=== PATIENT | male | born 1940 | race Caucasian/White ===

== ENCOUNTER 2016-06-10 06:19 | Emergency (ER) | payer OTHER ==
--- NOTE | 2016-06-10 07:05 | EDPHY ---
H & P Time Seen by Provider: 06/10/16 07:00 HPI/ROS: CHIEF COMPLAINT: Dysuria HISTORY OF PRESENT ILLNESS: This patient is a 76 year old male with a history of metastatic prostate cancer who presents to the Emergency Department complaining of dysuria with associated subjective fever over the past few days. Family reports that he has been more fatigued than usual over that time as well. He has no additional complaints. He denies difficulty walking. No nausea or vomiting. He does complain of chronic intermittent low back pain that is effectively alleviated with Ibuprofen use. A metastatic lesion was seen on imaging scan at [facility] in 2013 though it is unclear if his chronic pain is secondary to this. REVIEW OF SYSTEMS: Constitutional: +fatigue, +mild fever, no chills Eyes: No visual changes ENT: No sore throat Respiratory: No cough, no shortness of breath Cardiac: No chest pain Gastrointestinal: No nausea, no vomiting, no abdominal pain Genitourinary: +dysuria, no hematuria Musculoskeletal: +chronic low back pain, +restless legs, no leg pain or swelling Skin: No rash Neurological: No headache, no numbness, no weakness Psychiatric: No depression Past Medical/Surgical History: Metastatic prostate cancer. Chronic intermittent low back pain. Restless leg syndrome. Social History: Daughter at bedside is a practicing retread technician. Non-smoker. Smoking Status: Never smoked Physical Exam: General Appearance: Alert, non-toxic Eyes: Pupils equal and round, no conjunctival pallor or injection ENT, Mouth: Mucous membranes moist Neck: Normal inspection Back: Lower midline tenderness not localized, left paraspinous tenderness Respiratory: Lungs are clear to auscultation Cardiovascular: Regular rate and rhythm Gastrointestinal: Abdomen is soft and non-tender Neurological: A&O, nonfocal, normal gait Skin: Warm and dry, no rash Extremities: Nontender, no pedal edema Psychiatric: Mood and affect normal Constitutional: Initial Vital Signs Temperature (C) 36.9 C 06/10/16 06:25 Heart Rate 84 06/10/16 06:25 Respiratory Rate 18 06/10/16 06:25 Blood Pressure 118/70 06/10/16 06:25 O2 Sat (%) 96 06/10/16 06:25 O2 Delivery Mode Room Air Allergies/Adverse Reactions: No Known Allergies Allergy (Unverified 06/10/16 06:29) Home Medications: Medication Instructions Recorded Donepezil HCl [Aricept] 10 mg PO DAILY 06/10/16 Memantine HCl [Namenda 5 mg (*)] 5 mg PO BID 06/10/16 Naturthroid 06/10/16 Tamsulosin HCl [Flomax 0.4 MG (*)] 0.4 mg PO DAILY 06/10/16 Medical Decision Making - Diagnostics Imaging: Study: CT of the abdomen and pelvis Indication: History of metastatic prostate cancer, dysuria with fever Results: CT scan of the abdomen and pelvis was obtained. The results of the study are: 1. Moderate left hydronephrosis to the level of the sacral promontory. No ureteral calculi or nephrolithiasis. Perhaps the obstruction is secondary to retroperitoneal and pelvic lymphadenopathy. 2. Retroperitoneal and pelvic lymphadenopathy as well as numerous sclerotic bone lesions are suspicious for metastatic prostate adenocarcinoma. 3. Cholelithiasis. The study was read by the radiologist, Dr. Los Hammond. I viewed the images myself on the PACS system. ED Course/Re-evaluation: This 76 year old male with metastatic prostate cancer presents with low-grade fever and complaints of dysuria over the past three days. His daughter, who is a practicing retread technician, expresses concern of pyelonephritis or UTI. The patient also complains of low back pain at baseline which daughter reports is treated effectively with Ibuprofen use. I'm aware that this is possible metastatic disease, but as long as this is intermittent, will advise the patient and daughter to continue to observe and follow-up with the patient's oncologist. On exam, the patient does have right-sided paraspinous tenderness and midline lumbar tenderness. Will proceed with UA, CT of the abdomen and pelvis, and labs. IV established. 1L IV NS administered. Labs obtained: The patient is mildly anemic at baseline. Labs are otherwise unremarkable. UA is negative for UTI but positive for hematuria. 829: Imaging results reported to me by Dr. Uche Hammond, radiology. I discussed imaging results with the patient. Unclear etiology of hydronephrosis and hematuria, concerning for metastatic disease causing obstruction. He sees Dr. Browning, urologist, in [place] and agrees to see his urologist today as an outpatient. He expresses understanding of customary return precautions and will be discharged home in good condition. Differential Diagnosis: includes though not limited to pyelonephritis, kidney stone, bladder obstruction , neurologic compromise - Data Points Laboratory Results: Laboratory Results 06/10/16 07:00 06/10/16 07:00 06/10/16 06/10/16 06/10/16 07:00 07:00 06:28 WBC 6.08 10^3/uL 10^3/uL (3.80-9.50) RBC 3.52 10^6/uL L 10^6/uL (4.40-6.38) Hgb 10.8 g/dL L g/dL (13.7-17.5) Hct 32.0 % L % (40.0-51.0) MCV 90.9 fL fL (81.5-99.8) MCH 30.7 pg pg (27.9-34.1) MCHC 33.8 g/dL g/dL (32.4-36.7) RDW 14.7 % % (11.5-15.2) Plt Count 192 10^3/uL 10^3/uL (150-400) MPV 9.1 fL fL (8.7-11.7) Neut % (Auto) 70.5 % % (39.3-74.2) Lymph % (Auto) 16.6 % % (15.0-45.0) Brooks % (Auto) 11.5 % % (4.5-13.0) Eos % (Auto) 0.5 % L % (0.6-7.6) Baso % (Auto) 0.2 % L % (0.3-1.7) Nucleat RBC Rel Count 0.0 % % (0.0-0.2) Absolute Neuts (auto) 4.29 10^3/uL 10^3/uL (1.70-6.50) Absolute Lymphs (auto) 1.01 10^3/uL 10^3/uL (1.00-3.00) Absolute Monos (auto) 0.70 10^3/uL 10^3/uL (0.30-0.80) Absolute Eos (auto) 0.03 10^3/uL 10^3/uL (0.03-0.40) Absolute Basos (auto) 0.01 10^3/uL L 10^3/uL (0.02-0.10) Absolute Nucleated RBC 0.00 10^3/uL 10^3/uL (0-0.01) Immature Gran % 0.7 % % (0.0-1.1) Immature Gran # 0.04 10^3/uL 10^3/uL (0.00-0.10) Sodium 137 mEq/L mEq/L (134-144) Potassium 3.9 mEq/L mEq/L (3.5-5.2) Chloride 101 mEq/L mEq/L (97-110) Carbon Dioxide 29 mEq/l mEq/l (22-31) Anion Gap 7 mEq/L L mEq/L (8-16) BUN 19 mg/dL mg/dL (7-23) Creatinine 1.2 mg/dL mg/dL (0.7-1.3) Estimated GFR 59 Glucose 107 mg/dL H mg/dL (70-100) Calcium 8.8 mg/dL mg/dL (8.5-10.4) Urine Color YELLOW Urine Appearance HAZY Urine pH 5.0 (5.0-7.5) Ur Specific [place] 1.014 (1.002-1.030) Urine Protein 1+ H (NEGATIVE) Urine Ketones NEGATIVE (NEGATIVE) Urine Blood 1+ H (NEGATIVE) Urine Nitrate NEGATIVE (NEGATIVE) Urine Bilirubin NEGATIVE (NEGATIVE) Urine Urobilinogen NEGATIVE EU EU (0.2-1.0) Ur Leukocyte Esterase NEGATIVE (NEGATIVE) Urine RBC 50-182 /hpf H /hpf (0-3) Urine WBC 1-3 /hpf /hpf (0-3) Ur Epithelial Cells NONE SEEN /lpf /lpf (NONE-1+) Hyaline Casts 1-5 /lpf /lpf (0-1) Urine Mucus TRACE /lpf /lpf (NONE-1+) Ur Culture Indicated? NOT INDICATED (NI) Urine Glucose NEGATIVE (NEGATIVE) Medications Given: Discontinued Medications Sodium Chloride (Ns) 1,000 mls @ 0 mls/hr IV ONCE ONE PRN Reason: Wide Open Stop: 06/10/16 07:21 Last Admin: 06/10/16 07:24 Dose: 1,000 mls Departure - Departure Disposition: Home, Routine, Self-Care Clinical Impression: Hydronephrosis of left kidney, Hematuria Instructions: Hematuria (ED), Hydronephrosis (ED) Additional Instructions: 1. Take 650mg Tylenol every 4-6 hours as needed for pain. 2. Follow-up with your urologist today without fail. 3. Return to the Emergency Department with uncontrollable high fever, blood in your urine, worsening urinary complaints, or other serious concerns. Referrals: Digna Lundy [Primary Care Provider] - As per Instructions Gurmeet Browning MD [Medical Doctor] - As per Instructions Report Scribed for: Annette Arizmendi Report Scribed by: Carmella Serrato Date of Report: 06/10/16 Time of Report: 07:04 Physician Review and Approval Statement: 06/10/16 07:04 Portions of this note were transcribed by a certified medical technician. I personally performed a history, physical exam, medical decision making, and confirmed accuracy of information the transcribed note.
[2016-06-10 07:12] LABS: % IMMATURE GRANULYOCYTES 0.7 % (0.0-1.1); ABSOLUTE IMMATURE GRANULOCYTES 0.04 10^3/uL (0.00-0.10); ADD DIFF? NO; ADD MORPH? NO; ADD SCAN? NO; ATYPICAL LYMPHOCYTE FLAG 20 (0-99); FRAGMENT RBC FLAG 0 (0-99); HEMOGLOBIN 10.8 g/dL (13.7-17.5); LEFT SHIFT FLG 0 (0-99); LIPEMIA HEMOLYSIS FLAG 90 (0-99); MEAN CELL HEMOGLOBIN 30.7 pg (27.9-34.1); MEAN CELL HEMOGLOBIN CONCENTR. 33.8 g/dL (32.4-36.7); MEAN CELL VOLUME 90.9 fL (81.5-99.8); MEAN PLATELET VOLUME 9.1 fL (8.7-11.7); PLATELET CLUMPS FLAG 0 (0-99); PLATELET COUNT 192 10^3/uL (150-400); RED BLOOD CELL COUNT 3.52 10^6/uL (4.40-6.38); RED CELL DISTRIBUTION WIDTH 14.7 % (11.5-15.2)
[2016-06-10] MEDS ORDERED: NS 1,000 ML IV ONE (07:20)
[2016-06-10 07:24] LABS: ANION GAP 7 mEq/L (8-16); CALCIUM 8.8 mg/dL (8.5-10.4); CARBON DIOXIDE 29 mEq/l (22-31); CHLORIDE 101 mEq/L (97-110); CREATININE 1.2 mg/dL (0.7-1.3); GLOMERULAR FILTRATION RATE 59; GLUCOSE 107 mg/dL (70-100); POTASSIUM 3.9 mEq/L (3.5-5.2); SODIUM 137 mEq/L (134-144)
[2016-06-10 08:40] LABS: COLOR YELLOW; LEUKOCYTE ESTERASE,URINE NEGATIVE (NEGATIVE); NITRITE,URINE NEGATIVE (NEGATIVE)
[2016-06-10 08:47] LABS: MUCUS TRACE /lpf (NONE-1+); RBC,URINE 50-182 /hpf (0-3)
[2016-06-10 09:20] VITALS: BP 119/63; PULSE 73; RESP 16; TEMP 98.6; O2SAT 94
== END 2016-06-10 09:19 | disposition home or self-care (01) ==
DX: N13.30 Unspecified hydronephrosis (principal); R31.9 Hematuria, unspecified; Z85.46 Personal history of malignant neoplasm of prostate

== ENCOUNTER → 2016-06-26 | Outpatient (CLI) | payer OTHER | LOC: FIMAGING 11:18 | PROVIDERS: ATTEND Internal Medicine Hematology & Oncology | DX: C61 Malignant neoplasm of prostate (principal); C79.51 Secondary malignant neoplasm of bone | CPT/HCPCS: 78306; A9503 ==